=== PATIENT | female | born 1975 | race Caucasian/White ===

== ENCOUNTER 2021-10-23 00:04 | Emergency (ER) | payer MEDICAID ==
[~2021-10-23] VITALS: Ht 177.8 cm; Wt 100.0 kg
[~2021-10-23 00:04] MED LIST: AZIT250T PO; FLUC150T PO
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
--- NOTE | 2021-10-23 01:11 | NUR ---
CALLED [facility]. THEY WILL SEND AN OFFICER TO INTERVIEW PT.
--- NOTE | 2021-10-23 01:47 | NUR ---
PT REQUESTED TO DRINK WATER. WATER PROVIDED,.
[2021-10-23] MEDS ORDERED: ketorolac trometh. 30mg/ml inj. IM ONE (02:10)
[2021-10-23] MEDS ORDERED: LORazepam 1 MG tablet PO ONE (02:10)
--- NOTE | 2021-10-23 02:53 | NUR ---
[facility] INTERVIEWED PT. CASE NUMBER IS [id number]
[2021-10-23 03:00] VITALS: BP 165/109
== END 2021-10-23 03:02 | disposition home or self-care (01) ==
LOC: ER 00:05
DX: T65.893A Toxic effect of other specified substances, assault, initial encounter (principal); Y92.89 Other specified places as the place of occurrence of the external cause
CPT/HCPCS: 96372; 99283; J1885